=== PATIENT | male | born 1995 | race African-American/Black ===

== ENCOUNTER 2020-07-09 01:03 | Emergency (ER) | payer SELFPAY ==
--- NOTE | ~2020-07-09 | CT_ITS ---
EXAMINATION: CT brain wo con INDICATION: Head injury COMPARISON: None TECHNIQUE: Standard unenhanced head CT. The dose-length product (DLP) was 605.33 mGy-cm. The mA was a djusted according to patient size. Iterative reconstruction technique was employed. FINDINGS: There is no intracranial hemorrhage, acute infarction, or abnormal mass lesion. The ventric les are normal. There is no abnormal mass effect or midline shift. The patterson-white matter differentiat ion is normal. The basal cisterns are patent. The orbits are normal. There is mild mucosal thickening of the paranasal sinuses. IMPRESSION: 1. No acute intracranial abnormality. Reviewed, dictated and finalized at location A.
--- NOTE | 2020-07-09 01:27 | ED.HEATRA ---
HPI - Head Injury General Chief complaint: Head Injury Stated complaint: Head injury Time Seen by Provider: 07/09/20 01:06 Source: RN notes reviewed History of Present Illness HPI Narrative: Patient presents to emergency department for head injury. Patient states he was at the bar drinking this evening when he fell striking the back of his head is not completely sure how the incident happened he notes some bleeding from the posterior aspect of his head denies any other trauma or injury he denies any vision changes, numbness or tingling in extremities, neck pain, chest pain shortness of breath or any other symptoms unsure of his last tetanus shot Related Data Allergies Allergy/AdvReac Type Severity Reaction Status Date / Time NKDA Allergy Mild Uncoded 07/07/08 19:47 Review of Systems Review of Systems: Narrative: Gen.: Denies fevers or chills Eyes: Denies eye pain or visual change ENT: Denies congestion Respiratory: Denies shortness of breath or cough CV: Denies chest pain GI: Denies abdominal pain nausea, emesis Musculoskeletal: Denies back pain or muscle pain Neuro: See HPI Skin: Denies rash Except as documented, all other systems reviewed and negative [facility] Past Medical History Medical History (Updated 07/09/20 @ 02:34 by Keo Dumont DO) Patient denies significant medical history Social History Social History (Updated 07/09/20 @ 01:28 by Keo Dumont DO) Smoking status: Never smoker Exam Narrative: Exam Narrative: APPEARANCE: Tearful in bed nontoxic, EYES: EOMI, PERRL HEENT: Normocephalic, the posterior right scalp has a area of swelling with superficial abrasion with mild venous oozing no signs of infection no deep laceration seen TMs clear bilaterally nares patent oral mucosa moist Neck: Supple no midline tenderness palpation full range of motion without pain RESPIRATORY: No respiratory distress Clear to auscultation bilaterally with no rhonchi wheezing or rales. CARDIOVASCULAR: Regular rate and rhythm without murmurs rubs or gallops. ABDOMINAL: Soft, nontender, nondistended, no rebound or guarding MUSCULOSKELETAl: Moves all extremities. No clubbing, cyanosis or edema. NEURO: Awake and alert x 4 Following commands, speech normal, no focal deficits SKIN:: Warm, dry. No rashes lesions or abrasions PSYCHIATRIC: Normal affect/mood, Course Course Emergency Course: Discussed with patient results of workup and diagnosis. Discussed need for follow-up with primary care, proper use of medication, and reasons to return to the emergency department. Patient understands and agrees to current treatment plan Vital Signs Vital signs: Vital Signs Temperature 98.1 F 07/09/20 01:29 Pulse Rate 64 07/09/20 01:29 Respiratory Rate 18 07/09/20 01:29 Blood Pressure 116/72 07/09/20 01:29 Pulse Oximetry 98 07/09/20 01:29 Temperature 98.1 F 07/09/20 01:29 Pulse Rate 64 07/09/20 01:29 Respiratory Rate 18 07/09/20 01:29 Blood Pressure 116/72 07/09/20 01:29 Pulse Oximetry 98 07/09/20 01:29 MDM - Head Injury Imaging Data Radiologist's impression: CT head shows no acute infarct hemorrhage mass or edema Discharge Plan Discharge Clinical Impression: Contusion of head, Abrasion head Patient Disposition: Home, Self-Care Condition: Stable Instructions: Antibiotic Form, Head Injury (ED) Additional Instructions: Return for change in mental status, vomiting or any other symptoms of concern Prescriptions: New ibuprofen [IBU] 600 mg tablet 600 mg PO Q6H PRN (Reason: pain) Qty: 20 RF: 0 Follow-up/Referrals: PHYSICIAN,FLAME BURNER [Primary Care Provider] - Chris Burns MD [Physician] - (Follow-up in 1-2 days for further on-call physician treatment and evaluation) Stand Alone Forms: Work/School Release IP Time of Disposition: 02:34
[2020-07-09 01:29] VITALS: BP 116/72; PULSE 64; RESP 18; TEMP 36.7; O2SAT 98
[2020-07-09 02:39] VITALS: BP 134/76; PULSE 76; RESP 20; O2SAT 100
== END 2020-07-09 02:57 | disposition home or self-care (01) ==
PROVIDERS: Emergency Provider Emergency Medicine
DX: S00.93XA Contusion of unspecified part of head, initial encounter (principal); S00.01XA Abrasion of scalp, initial encounter; W19.XXXA Unspecified fall, initial encounter
CPT/HCPCS: 70450; 99284